=== PATIENT | male | born 2000 | race Caucasian/White ===

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

== ENCOUNTER 2018-09-01 03:52 | Emergency (ER) | payer SELFPAY ==
--- NOTE | 2018-09-01 04:07 | ER Document Report ---
ED General - General Chief Complaint: Psych Problem Stated Complaint: PSYCH PROBLEM Time Seen by Provider: 09/01/18 03:59 Notes: Patient is a 17-year-old male who presents to the emergency department after leaving his house in waking up 2 miles down from where he lives. he states he does not remember anything from the time that he stepped outside his house to smoke a cigarette until he woke up. He then proceeded to call 911, and was brought to the hospital. He denies any alcohol use tonight. He did smoke marijuana on Sunday night, 1 night ago. He does complain of neck pain and point tenderness upon palpation of his cervical spine. He also complains of pain to his right wrist, and has cuts to that area. There are additional cuts to his right ankle and lower leg, in which he states are from his dog. TRAVEL OUTSIDE OF THE [place] IN LAST 30 DAYS: No - Related Data Allergies/Adverse Reactions: No Known Allergies Allergy (Verified 08/27/17 22:13) Past Medical History - Social History Smoking Status: Current Every Day Smoker Frequency of alcohol use: Occasional Drug Abuse: Marijuana Family History: None Renal/ Medical History: Denies: Hx Peritoneal Dialysis Psychiatric Medical History: Reports: Hx Attention Deficit Hyperactivity Disorder - Immunizations Immunizations up to date: Yes Hx Diphtheria, Pertussis, Tetanus Vaccination: Yes Review of Systems - Review of Systems Notes: REVIEW OF SYSTEMS: CONSTITUTIONAL : Denies recent illness. Denies recent unintentional weight loss. Denies fever, chills, or sweats. EENT: Denies eye, ear, throat, or mouth pain, discharge, or symptoms. Denies nasal or sinus congestion. CARDIOVASCULAR: Denies chest pain. RESPIRATORY: Denies shortness of breath, cough, congestion, difficulty breathing , or wheezing. GASTROINTESTINAL: Denies nausea, vomiting, and diarrhea. Denies abdominal pain. Denies constipation. GENITOURINARY: Denies difficulty urinating, burning, blood in urine, urgency or frequency. MUSCULOSKELETAL: See HPI. denies joint pain or swelling. SKIN: Denies rash, itchiness, or lesions HEMATOLOGIC : Denies easy bruising or bleeding. LYMPHATIC: Denies swollen, painful, enlarged glands. NEUROLOGICAL: Denies no numbness or tingling denies weakness. Denies headache. Denies altered mental status. Denies alteration in speech. PSYCHIATRIC: Denies stress, anxiety, alteration in sleep patterns, or depression. All other systems reviewed and negative. Physical Exam - Vital signs Vitals: Temp Pulse Resp BP Pulse Ox 98.6 F 58 L 16 112/58 L 98 09/01/18 04:48 09/01/18 04:48 09/01/18 04:48 09/01/18 04:48 09/01/18 04:48 - Notes Notes: PHYSICAL EXAMINATION: GENERAL: Appears well, healthy, well-nourished, no acute distress. HEAD: Normocephalic, atraumatic. EYES: PERRL, conjunctiva normal, all extraocular movements intact, sclera nonicteric ENT: Moist mucous membranes. NECK: Point tenderness to cervical spine. Supple, no noticeable swelling, redness, rash. Normal range of motion. LUNGS: Equal breath sounds bilaterally and clear to auscultation. No wheezes rales or rhonchi. CARDIOVASCULAR: S1-S2, regular rate, regular rhythm. Radial pulses 2+, normal. ABDOMEN: Normoactive bowel sounds. Soft, nontender, no guarding, no rebound tenderness, and no masses palpated. EXTREMITIES: Normal strength and range of motion, no pitting or edema. No cyanosis. NEUROLOGICAL: Moves all extremities upon command. Strength 5/5 in all extremities. PSYCH: Normal mood, normal affect. SKIN: Scratches noted to right wrist/forearm, scratches noted to right ankle and right lower leg. Course - Re-evaluation Re-evalutation: 09/01/18 05:05 Laboratory studies are unremarkable at this time. CT of the head and neck, and x-ray of his wrist are negative. Awaiting urine drug screen. - Vital Signs Vital signs: Temp Pulse Resp BP Pulse Ox 98.6 F 58 L 16 112/58 L 98 09/01/18 04:48 09/01/18 04:48 09/01/18 04:48 09/01/18 04:48 09/01/18 04:48 - Laboratory Result Diagrams: 09/01/18 04:20 09/01/18 04:20 Laboratory results interpreted by me: 09/01/18 09/01/18 04:20 04:20 RBC 5.86 H Hgb 17.3 H Potassium 3.5 L Discharge - Discharge Clinical Impression: Altered mental status, unspecified Qualifiers: Altered mental status type: unspecified Qualified Code(s): R41.82 - Altered mental status, unspecified Condition: Stable Disposition: HOME, SELF-CARE Additional Instructions: You have been seen today in the emergency department for "blacking out." It is unclear as to why you have had this episode. Your labs and imaging are normal. It is concerning that you have had this now for the second time. Please follow-up with your neurologist you saw last time. If this happens again, develop a fever greater than 100.4 F or greater, develop shortness of breath, or if you have any concerns that are worrisome to you, please return to the emergency department.
[2018-09-01 04:31] LABS: ABSOLUTE BASOPHILS # (AUTO) 0.1 10^3/uL (0.0-0.2); ABSOLUTE EOSINOPHILS # (AUTO) 0.1 10^3/uL (0.0-0.6); ABSOLUTE LYMPHOCYTES (AUTO) 2.3 10^3/uL (0.5-4.7); ABSOLUTE MONOCYTES (AUTO) 0.5 10^3/uL (0.1-1.4); ABSOLUTE NEUT (AUTO) 5.6 10^3/uL (1.7-8.2); BASOPHILS % (AUTO) 0.7 % (0-2); EOSINOPHILS % (AUTO) 1.3 % (0-6); HEMATOCRIT 50.3 % (37.9-51.0); HEMOGLOBIN 17.3 g/dL (13.5-17.0); LYMPHOCYTES % (AUTO) 27.1 % (13-45); MEAN CORPUSCULAR HEMOGLOBIN 29.5 pg (27.0-33.4); MEAN CORPUSCULAR HGB CONC 34.3 g/dL (32.0-36.0); MEAN CORPUSCULAR VOLUME 86 fl (80-97); MONOCYTES % (AUTO) 5.5 % (3-13); PLATELET COUNT 255 10^3/uL (150-450); RED BLOOD COUNT 5.86 10^6/uL (4.35-5.55); RED CELL DISTRIBUTION WIDTH 13.3 % (11.5-14.0); SEGMENTED NEUTROPHILS % (AUTO) 65.4 % (42-78); TOTAL CELLS COUNTED % (AUTO) 100 %; WHITE BLOOD COUNT 8.5 10^3/uL (4.0-10.5)
[2018-09-01 04:53] VITALS: BP 112/58
[2018-09-01 04:55] LABS: ALCOHOL < 10 mg/dL (NONE DETECTED); ANION GAP 14 (5-19); BLOOD UREA NITROGEN 13 mg/dL (7-20); CARBON DIOXIDE 22 mmol/L (22-30); CHLORIDE 106 mmol/L (98-107); GLUCOSE 100 mg/dL (75-110); POTASSIUM 3.5 mmol/L (3.6-5.0); SODIUM 141.9 mmol/L (137-145)
--- NOTE | 2018-09-01 04:59 | RADIOLOGY REPORT (SQ) ---
CLINICAL HISTORY: ALOC COMPARISON: None. TECHNIQUE: CT CERVICAL SPINE WITHOUT IV CONTRAST on 09/01/2018 4:16 AM [employer]PRENTICE This exam was performed according to our departmental dose-optimization program, which includes automated exposure control, adjustment of the mA and/or kV according to patient size and/or use of iterative reconstruction technique. FINDINGS: There is no acute fracture. Alignment is anatomic. Disc spaces are maintained. Vertebral body heights are preserved. Soft tissues are unremarkable. IMPRESSION: No acute fracture or subluxation.
--- NOTE | 2018-09-01 04:59 | RADIOLOGY REPORT (SQ) ---
EXAM DESCRIPTION: CT HEAD WITHOUT IV CONTRAST COMPLETED DATE/TME: 09/01/2018 04:15 CLINICAL HISTORY: 17 years Male, ALOC COMPARISON: None. TECHNIQUE: No contrast. Coronal and sagittal reformat. This exam was performed according to our departmental dose-optimization program, which includes automated exposure control, adjustment of the mA and/or kV according to patient size and/or use of iterative reconstruction technique. FINDINGS: No hemorrhage or infarct. No mass, mass effect, or midline shift. Brain and extra-axial structures appear intact. IMPRESSION: Normal CT of the head.
--- NOTE | 2018-09-01 05:03 | RADIOLOGY REPORT (SQ) ---
CLINICAL HISTORY: injury COMPARISON: None. TECHNIQUE: XR WRIST 3 OR MORE VIEWS BILATERAL 09/01/2018 4:17 AM [employer] FINDINGS: There is no fracture. Joint spaces are preserved. Soft tissues are unremarkable. IMPRESSION: No acute osseous findings.
[2018-09-01 05:39] LABS: URINE AMPHETAMINES SCREEN NEGATIVE; URINE BARBITURATES SCREEN NEGATIVE; URINE BENZODIAZEPINES SCREEN NEGATIVE; URINE COCAINE SCREEN NEGATIVE; URINE MARIJUANA (THC) SCREEN UNCONFIRMED POSITIVE; URINE METHADONE SCREEN NEGATIVE; URINE PHENCYCLIDINE SCREEN NEGATIVE
== END 2018-09-01 06:18 | disposition home or self-care (01) ==
LOC: ER 03:52
DX: R41.82 Altered mental status, unspecified (principal); R41.3 Other amnesia; S60.811A Abrasion of right wrist, initial encounter; S90.511A Abrasion, right ankle, initial encounter; S80.811A Abrasion, right lower leg, initial encounter; S50.811A Abrasion of right forearm, initial encounter; X58.XXXA Exposure to other specified factors, initial encounter; M54.2 Cervicalgia; M25.531 Pain in right wrist; F17.210 Nicotine dependence, cigarettes, uncomplicated; F12.10 Cannabis abuse, uncomplicated
CPT/HCPCS: 36415; 70450; 72125; 80048; 80307; 85025; 99285

== ENCOUNTER 2018-12-07 10:59 | Emergency (ER) | payer OTHER ==
--- NOTE | 2018-12-07 11:54 | ER Document Report ---
ED Medical Screen (RME) - General Chief Complaint: Abdominal Pain Stated Complaint: ABDOMINAL PAIN Time Seen by Provider: 12/07/18 11:43 Mode of Arrival: Ambulatory Information source: Patient Notes: This is a 18-year-old man who presents with abdominal pain. Patient has been experiencing diffuse abdominal pain more so in the morning that seems to let up during the day. He states he does not normally eat that much in the morning but ends to eat more later in the day. He does report that he does have blood in his stool at times mixed in. There is of strong family history (father, older brother) of abdominal pain issues and blood in the stool. The patient is currently on no medicines. He does smoke a pack a day. He has had no surgeries. He had a diagnosis a number of years ago of IBS. TRAVEL OUTSIDE OF THE [place] IN LAST 30 DAYS: No - Related Data Allergies/Adverse Reactions: No Known Allergies Allergy (Verified 12/07/18 10:59) Past Medical History Neurological Medical History: Reports: Hx Seizures Renal/ Medical History: Denies: Hx Peritoneal Dialysis Psychiatric Medical History: Reports: Hx Attention Deficit Hyperactivity Disorder - Immunizations Immunizations up to date: Yes Hx Diphtheria, Pertussis, Tetanus Vaccination: Yes Physical Exam - Vital signs Vitals: Temp Pulse Resp BP Pulse Ox 99.0 F 56 L 14 104/49 L 97 12/07/18 11:18 12/07/18 11:18 12/07/18 11:18 12/07/18 11:18 12/07/18 11:18 Course - Vital Signs Vital signs: Temp Pulse Resp BP Pulse Ox 99.0 F 56 L 14 104/49 L 97 12/07/18 11:18 12/07/18 11:18 12/07/18 11:18 12/07/18 11:18 12/07/18 11:18
[2018-12-07 12:06] LABS: ABSOLUTE EOSINOPHILS # (AUTO) 0.1 10^3/uL (0.0-0.6); ABSOLUTE LYMPHOCYTES (AUTO) 1.5 10^3/uL (0.5-4.7); ABSOLUTE MONOCYTES (AUTO) 0.4 10^3/uL (0.1-1.4); ABSOLUTE NEUT (AUTO) 6.4 10^3/uL (1.7-8.2); BASOPHILS % (AUTO) 0.6 % (0-2); EOSINOPHILS % (AUTO) 0.6 % (0-6); HEMATOCRIT 49.9 % (37.9-51.0); HEMOGLOBIN 17.1 g/dL (13.5-17.0); LYMPHOCYTES % (AUTO) 17.6 % (13-45); MEAN CORPUSCULAR HEMOGLOBIN 29.5 pg (27.0-33.4); MEAN CORPUSCULAR HGB CONC 34.3 g/dL (32.0-36.0); MEAN CORPUSCULAR VOLUME 86 fl (80-97); MONOCYTES % (AUTO) 4.9 % (3-13); PLATELET COUNT 334 10^3/uL (150-450); RED BLOOD COUNT 5.81 10^6/uL (4.35-5.55); RED CELL DISTRIBUTION WIDTH 13.8 % (11.5-14.0); SEGMENTED NEUTROPHILS % (AUTO) 76.3 % (42-78); TOTAL CELLS COUNTED % (AUTO) 100 %; WHITE BLOOD COUNT 8.4 10^3/uL (4.0-10.5)
[2018-12-07 12:31] LABS: ALANINE AMINOTRANSFERASE 42 U/L (21-72); ALBUMIN 4.8 g/dL (3.5-5.0); ALKALINE PHOSPHATASE 64 U/L (38-126); ANION GAP 10 (5-19); ASPARTATE AMINO TRANSFERASE 27 U/L (17-59); BILIRUBIN,DIRECT 0.2 mg/dL (0.0-0.4); BILIRUBIN,TOTAL 0.5 mg/dL (0.2-1.3); BLOOD UREA NITROGEN 15 mg/dL (7-20); CALCIUM 10.5 mg/dL (8.4-10.2); CARBON DIOXIDE 29 mmol/L (22-30); CHLORIDE 104 mmol/L (98-107); GLUCOSE 94 mg/dL (75-110); POTASSIUM 4.9 mmol/L (3.6-5.0); SODIUM 142.6 mmol/L (137-145); TOTAL PROTEIN 7.7 g/dL (6.3-8.2)
[2018-12-07] MEDS ORDERED: HYDROCODONE/ACETAMINOPHEN 5-325 MG TABLET PO ONE (13:03)
--- NOTE | 2018-12-07 13:06 | ER Document Report ---
ED GI/ - General Chief Complaint: Abdominal Pain Stated Complaint: ABDOMINAL PAIN Time Seen by Provider: 12/07/18 11:43 Primary Care Provider: RENÉE STAHL DO [Primary Care Provider] - Follow up as needed Mode of Arrival: Ambulatory Notes: 18-year-old male with past medical history of irritable bowel syndrome who presents today with some intermittent lower abdominal "cramping" that is normally in the morning and resolves during the day. He states he has seen some bloody stools in the past, around 2 weeks ago. He denies any nausea, vomiting, fevers, dysuria, radiation of the pain, or aggravating or relieving factors. His brother and sibling have similar abdominal symptomatology. TRAVEL OUTSIDE OF THE [place] IN LAST 30 DAYS: No - HPI Similar symptoms previously: No Recently seen / treated by doctor: No - Related Data Allergies/Adverse Reactions: No Known Allergies Allergy (Verified 12/07/18 10:59) Past Medical History - General Information source: Patient - Social History Smoking Status: Current Every Day Smoker Drug Abuse: Marijuana Family History: None Patient has suicidal ideation: No Patient has homicidal ideation: No Neurological Medical History: Reports: Hx Seizures Renal/ Medical History: Denies: Hx Peritoneal Dialysis Psychiatric Medical History: Reports: Hx Attention Deficit Hyperactivity Disorder - Immunizations Immunizations up to date: Yes Hx Diphtheria, Pertussis, Tetanus Vaccination: Yes Review of Systems - Review of Systems Constitutional: denies: Fever EENT: denies: Eye discharge, Nose discharge Cardiovascular: denies: Chest pain Respiratory: denies: Short of breath Gastrointestinal: denies: Vomiting Genitourinary: denies: Dysuria Musculoskeletal: denies: Leg swelling Skin: denies: Rash Neurological/Psychological: Other - no slurred speech -: Yes All other systems reviewed and negative Physical Exam - Vital signs Vitals: Temp Pulse Resp BP Pulse Ox 99.0 F 56 L 14 104/49 L 97 12/07/18 11:18 12/07/18 11:18 12/07/18 11:18 12/07/18 11:18 12/07/18 11:18 Notes: Reviewed vital signs and nursing note as charted by RN. CONSTITUTIONAL: Alert and oriented and responds appropriately to questions. Well-appearing; well-nourished HEAD: Normocephalic; atraumatic EYES: Sclerae non-icteric ENT: Normal nose; no rhinorrhea; moist mucous membranes; pharynx without lesions noted NECK: Supple without meningismus; non-tender CARD: Regular rate and rhythm; no murmurs; symmetric distal pulses RESP: Normal chest excursion without splinting or tachypnea; breath sounds clear and equal bilaterally ABD/GI: Normal bowel sounds; non-distended; soft, non-tender currently to deep palpation of all 4 quadrants of the abdomen GI/: Patient has no penile lesions, testicular pain or swelling, or inguinal masses palpated. Rectal examination is negative for blood and is currently Hemoccult negative BACK: The back appears normal and is non-tender to palpation EXT: Normal ROM in all joints; non-tender to palpation; no edema SKIN: No acute lesions noted NEURO: CN 2-12 intact; 5/5 bilateral upper and lower extremity strength with sensation intact to light touch PSYCH: The patient's mood and manner are appropriate. Grooming and personal hygiene are appropriate. Course - Re-evaluation Re-evalutation: Given the above history and physical examination, we will obtain basic labs, li savita panel, and lipase. I do not believe any imaging is currently needed at this moment. Patient appears to have a history of irritable bowel syndrome and patient's Hemoccult stool is negative. Vital signs are stable and the patient has been afebrile. 12/07/18 13:05 Labs thus far as recorded. No change in exam. The patient's lipase is unremarkable, patient will be discharged home with nausea medications and expedited follow-up referral with gastroenterology. 12/07/18 13:42 Labs as recorded. Patient's pain is improved. Patient still has no tenderness to my deep palpation of all 4 quadrants of the abdomen. No vomiting here. I will provide a course of nausea medications, strict return precautions, and follow-up with the engine turner. - Vital Signs Vital signs: Temp Pulse Resp BP Pulse Ox 99.0 F 56 L 14 104/49 L 97 12/07/18 11:18 12/07/18 11:18 12/07/18 11:18 12/07/18 11:18 12/07/18 11:18 - Laboratory Result Diagrams: 12/07/18 11:50 12/07/18 11:50 Laboratory results interpreted by me: 12/07/18 12/07/18 11:50 11:50 RBC 5.81 H Hgb 17.1 H Calcium 10.5 H Discharge - Discharge Clinical Impression: Vomiting Qualifiers: Vomiting type: unspecified Vomiting Intractability: non-intractable Nausea presence: with nausea Qualified Code(s): R11.2 - Nausea with vomiting, unspecified Abdominal pain Qualifiers: Abdominal location: periumbilical Qualified Code(s): R10.33 - Periumbilical pain Condition: Good Disposition: HOME, SELF-CARE Additional Instructions: Come back immediately for any increased pain, change in location or quality of pain, fevers or vomiting, or any other acute problems. Please follow-up with the engine turner as we have discussed. Prescriptions: Ondansetron [Zofran Odt 4 mg Tablet] 1 tab PO Q6H #15 tab.rapdis Referrals: RENÉE STAHL DO [Primary Care Provider] - Follow up as needed NIKI SCOTT MD [ACTIVE STAFF] - Follow up as needed
[2018-12-07 13:18] LABS: LIPASE 56.1 U/L (23-300)
[2018-12-07 14:11] VITALS: BP 127/52
== END 2018-12-07 13:50 | disposition home or self-care (01) ==
LOC: ER 10:59
DX: R11.2 Nausea with vomiting, unspecified (principal); R10.33 Periumbilical pain; R10.30 Lower abdominal pain, unspecified; R10.9 Unspecified abdominal pain; R19.5 Other fecal abnormalities; F17.200 Nicotine dependence, unspecified, uncomplicated; F12.10 Cannabis abuse, uncomplicated
CPT/HCPCS: 36415; 80053; 83690; 85025; 99284

== ENCOUNTER 2019-06-12 12:41 | Emergency (ER) | payer OTHER ==
--- NOTE | 2019-06-12 13:05 | ER Document Report ---
ED Medical Screen (RME) - General Chief Complaint: Vomiting Stated Complaint: VOMITING Time Seen by Provider: 06/12/19 13:01 Primary Care Provider: RENÉE STAHL DO [Primary Care Provider] - Follow up as needed Mode of Arrival: Ambulatory Information source: Patient Notes: 18-year-old male presented to ED for complaint of vomiting. He states his had vomiting and diarrhea all day. He states that he started vomiting blood and is pure blood no clots no food just blood. He states he did have marijuana last night and is not sure what presented because since smoking marijuana he is felt like his insides were on fire. He is alert oriented respirations regular and unlabored speaking in full sentences. He does smoke a pack of cigarettes a day does not drink alcohol and lives with his dad. He states he does have a history of seizures IBS and a fractured right arm. He states he did have a colonoscopy 3 months ago. I have greeted and performed a rapid initial assessment of this patient. A comprehensive ED assessment and evaluation of the patient, analysis of test results and completion of medical decision making process will be conducted by a n additional ED providers. Dictation of this chart was performed using voice recognition software; therefore, there may be some unintended grammatical errors. TRAVEL OUTSIDE OF THE [place] IN LAST 30 DAYS: No - Related Data Allergies/Adverse Reactions: No Known Allergies Allergy (Verified 06/12/19 12:45) Past Medical History Neurological Medical History: Reports: Hx Seizures Renal/ Medical History: Denies: Hx Peritoneal Dialysis Psychiatric Medical History: Reports: Hx Attention Deficit Hyperactivity Disorder - Immunizations Immunizations up to date: Yes Hx Diphtheria, Pertussis, Tetanus Vaccination: Yes Physical Exam - Vital signs Vitals: Temp Pulse Resp BP Pulse Ox 97.4 F 78 18 139/78 H 100 06/12/19 12:47 06/12/19 12:47 06/12/19 12:47 06/12/19 12:47 06/12/19 12:47 Course - Vital Signs Vital signs: Temp Pulse Resp BP Pulse Ox 97.4 F 78 18 139/78 H 100 06/12/19 12:47 06/12/19 12:47 06/12/19 12:47 06/12/19 12:47 06/12/19 12:47 Doctor's Discharge - Discharge Referrals: RENÉE STAHL DO [Primary Care Provider] - Follow up as needed
[2019-06-12] MEDS ORDERED: ONDANSETRON HCL INJ/PF 4 MG/2 ML SDV IV ONE (13:06)
[2019-06-12] MEDS ORDERED: NORMAL SALINE 1000 ML 1,000 ML IV ONE (13:07)
[2019-06-12 13:27] LABS: ABSOLUTE LYMPHOCYTES (AUTO) 1.5 10^3/uL (0.5-4.7); ABSOLUTE MONOCYTES (AUTO) 0.6 10^3/uL (0.1-1.4); ABSOLUTE NEUT (AUTO) 12.2 10^3/uL (1.7-8.2); BASOPHILS % (AUTO) 0.2 % (0-2); EOSINOPHILS % (AUTO) 0.2 % (0-6); HEMOGLOBIN 19.6 g/dL (13.5-17.0); LYMPHOCYTES % (AUTO) 10.2 % (13-45); MEAN CORPUSCULAR HEMOGLOBIN 29.7 pg (27.0-33.4); MEAN CORPUSCULAR HGB CONC 33.7 g/dL (32.0-36.0); MEAN CORPUSCULAR VOLUME 88 fl (80-97); MONOCYTES % (AUTO) 4.1 % (3-13); PLATELET COUNT 281 10^3/uL (150-450); RED BLOOD COUNT 6.61 10^6/uL (4.35-5.55); RED CELL DISTRIBUTION WIDTH 13.8 % (11.5-14.0); SEGMENTED NEUTROPHILS % (AUTO) 85.3 % (42-78); TOTAL CELLS COUNTED % (AUTO) 100 %; WHITE BLOOD COUNT 14.3 10^3/uL (4.0-10.5)
[2019-06-12 13:28] LABS: HEMATOCRIT 58.3 % (37.9-51.0)
[2019-06-12 13:45] LABS: ALKALINE PHOSPHATASE 52 U/L (38-126); ANION GAP 10 (5-19); ASPARTATE AMINO TRANSFERASE 45 U/L (17-59); BILIRUBIN,DIRECT 0.2 mg/dL (0.0-0.4); BILIRUBIN,TOTAL 0.8 mg/dL (0.2-1.3); BLOOD UREA NITROGEN 11 mg/dL (7-20); CALCIUM 10.5 mg/dL (8.4-10.2); CARBON DIOXIDE 29 mmol/L (22-30); CHLORIDE 102 mmol/L (98-107); CREATINE KINASE 89 U/L (55-170); GLUCOSE 107 mg/dL (75-110); TOTAL PROTEIN 7.5 g/dL (6.3-8.2)
--- NOTE | 2019-06-12 15:11 | ER Document Report ---
HPI - HPI Patient complains to provider of: abdominal pain, hematemesis, diarrhea Time Seen by Provider: 06/12/19 13:01 Pain Level: 5 Context: 18 yr old male pt with the listed pmh, here for intermittent crampy diffuse abdominal pain for a few days and a few episodes of what he thinks was vomit with some bright red blood in it today so he came in. he had diarrhea without blood a few days ago but states that resolved and he hasn't had any today. no acute blood loss sx. hx of colonoscopy but no egd in the past that was neg and was diagnosed with what he thinks was IBS but never followed up. he was dc'd with protonix and bentyl then which he states he does take. unsure if he ate something bad. he does smoke cigarettes, drink occ etoh, and smoke marijuana but denies prior hx of cannabis hyperemesis or hematemesis before. no trauma or i njury. no hx of diabetes or asthma. normal bms. no uti sx. no testicular pain/swelling, penile dc/rash/lesions, or concerns for stds. denies swelling or hx of hernias. no abd surgeries unless otherwise noted. no recent abx or steroids. hasn't taken anything for sx. no hx of gerd, gb dz, pancreatitis, gi bleed, ulcers, diverticulitis, h pylori, or crohns. no hx of this before. no sick contacts. no uri sx. no rash. no excessive nsaid use or etoh. no recent illness. pain not worse with eating. denies changes in color or caliber of stool. no other associated sx. also of note, pt states he just donated plasma, and has been told in the past his h/h or iron was high before and hasn't f/u for this. he does have a pcp but can't remember her name. he denies testosterone usage or hx of other blood diseases. - ROS Systems Reviewed and Negative: Yes All other systems reviewed and negative - to include 10 systems, unless mentioned in the hpi - DERM Skin Color: Normal Past Medical History - General Information source: Patient - Social History Smoking Status: Current Every Day Smoker Chew tobacco use (# tins/day): No Frequency of alcohol use: Occasional Drug Abuse: Marijuana Family History: None Patient has suicidal ideation: No Patient has homicidal ideation: No Neurological Medical History: Reports: Hx Seizures - remotely as a child-no reoccurence-not on any meds. Endocrine Medical History: Reports: None Renal/ Medical History: Denies: Hx Peritoneal Dialysis Psychiatric Medical History: Reports: Hx Attention Deficit Hyperactivity Disorder Past Surgical History: Reports: Hx Orthopedic Surgery - Immunizations Immunizations up to date: Yes Hx Diphtheria, Pertussis, Tetanus Vaccination: Yes Vertical Provider Document - CONSTITUTIONAL Agree With Documented VS: Yes Exam Limitations: No Limitations General Appearance: No Apparent Distress Notes: >>>> PHYSICAL_EXAM: GENERAL_APPEARANCE: well_nourished, alert, cooperative, no_acute_distress, no obvious_discomfort. Pleasant, young male, laughing and joking around with girlfriend at bedside, smiling, speaking in full sentences, easily sitting up, in no sign of pain or resp distress, nontoxic VITALS: reviewed, see vital signs table. HEAD: normocephalic. atraumatic. no morgan signs. no raccoon eyes. EYES: PERRL, EOMI, (-)scleral icterus. NOSE: no_nasal_discharge. MOUTH: (-)decreased moisture. THROAT: no_tonsilar_inflammation/hypertrophy/exudate. no lymphadenopathy NECK: supple, no_neck_tenderness, full rom. full strength. no meningeal signs. BACK: no_back_tenderness. CHEST_WALL: no_chest_tenderness. LUNGS: no_wheezing, (-)accessory muscle use, good air exchange bilateral. HEART: normal_rate, normal_rhythm, ABDOMEN: normal_BS, soft, abdomen-diffuse non-tender, (-)guarding, (-)rebound, no distension or peritoneal signs. neg murphys. neg mcburneys. neg heel strike. neg obturator. neg psoas. neg rovsign. no cva tenderness GENITALS: deferred RECTAL: deferred EXTREMITIES: strength 5/5 in all_extremities, good pulses in all_extremities, no_edema, no_swelling\tenderness. full rom. normal gait. brisk cap refill. 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 SKIN: warm, dry, good_color, no _rash. no grossly visible overlying skin changes to suggest trauma unless otherwise noted. NEURO: motor_intact, sensory_intact. cranial nerves 2-12 intact, cerebellar fxn intact MENTAL_STATUS: normal_affect, speech_clear, oriented_X_3, responds_appropriat heber to questions. - INFECTION CONTROL TRAVEL OUTSIDE OF THE [place] IN LAST 30 DAYS: No Course - Re-evaluation Re-evalutation: pt here for intermittent diffuse abd pain, concern for possible blood in his vomit; however, he hasn't vomited here and doesn't have any pics of blood with vomit in it. he has had no diarrhea either. he is requesting food and drink and to be dc'd because he is hungry. he has no abd ttp on exam. he denies any abd pain currently. he just donated plasma and has a hx of an elevated h/h. labs unremarkable other than a slightly elevated h/h and mild leukocytosis. he rec eived fluids and nausea meds in triage and is refusing further workup and tx and requesting dc. again serial abd exams remain benign. he is tolerating po. advised if sx return he needs to return for further workup. he also needs to f/u with heme/onc/pcp/gi for his sx and elevated h/h to r/o other causes of his sx. advised bland diet. drink plenty of fluids. advised to f/u with pcp/hemeonc/gi in 1-2 days. return for any worsening symptoms. vss. well appearing. satting well on ra. neurononfocal. pt understands and agrees to plan. On reexam, pt improved with tx listed. remained stable. nontoxic. well appearing. pain controlled. tolerating po. requesting to go home. serial abd exams remain benign case discussed with ER Attending, Dr. riley, who directed and agrees with plan of care and advised no further workup indicated at this time and pt is stable for dc home with close f/u with pcp/specialist. Documentation achieved through voice recording which may lead to some occasional accidental typographical errors. Extensive efforts have been made to proof read documentation to make sure these are the least as possible. Category Date Time Status CBC WITH DIFF [HEME] Stat Lab 06/12/19 13:12 Completed COMPREHENSIVE METABOLIC PANEL [CHEM] Stat Lab 06/12/19 13:12 Completed CREATINE KINASE [CHEM] Stat Lab 06/12/19 13:12 Completed LIPASE [CHEM] Stat Lab 06/12/19 13:12 Completed TYPE AND SCREEN [BBK] Stat Lab 06/12/19 15:33 Completed URINALYSIS [URIN] Stat Lab 06/12/19 15:05 Completed URINE CULTURE [MC] Stat Lab 06/12/19 15:05 Completed URINE DRUG SCREEN [CHEM] Stat Lab 06/12/19 15:05 Completed Normal Saline 1000 ml [NaCl 0.9% 1000 ml IV Soln] 1,000 Med 06/12/19 13:07 Discontinued ml IV BOLUS Ondansetron HCl/Pf [Zofran Inj/Pf 4 mg/2 ml Sdv] Med 06/12/19 13:06 Discontinued 8 mg IV NOW ONE - Vital Signs Vital signs: Temp Pulse Resp BP Pulse Ox 97.4 F 78 18 139/78 H 100 06/12/19 12:47 06/12/19 12:47 06/12/19 12:47 06/12/19 12:47 06/12/19 12:47 - Laboratory Result Diagrams: 06/12/19 13:12 06/12/19 13:12 Laboratory results interpreted by me: 06/12/19 06/12/19 13:12 13:12 WBC 14.3 H RBC 6.61 H Hgb 19.6 H Hct 58.3 H Lymph % (Auto) 10.2 L Absolute Neuts (auto) 12.2 H Seg Neutrophils % 85.3 H Calcium 10.5 H Discharge - Discharge Clinical Impression: Elevated hemoglobin Abdominal pain Qualifiers: Abdominal location: unspecified location Qualified Code(s): R10.9 - Unspecified abdominal pain Hematemesis Qualifiers: Nausea presence: with nausea Qualified Code(s): K92.0 - Hematemesis Diarrhea Qualifiers: Diarrhea type: unspecified type Qualified Code(s): R19.7 - Diarrhea, unspecified Leukocytosis Qualifiers: Leukocytosis type: other Qualified Code(s): D72.828 - Other elevated white blood cell count Condition: Good Disposition: HOME, SELF-CARE Instructions: Abdominal Pain ([facility]) Additional Instructions: Follow-up with PCP/GI/hematology/oncology in 1 to 2 days. Return for any worsening symptoms. tylenol as needed for any pain or fever if not allergic. take the medication as prescribed. bland diet. drink plenty of fluids. Prescriptions: Ondansetron HCl [Zofran 4 mg Tablet] 1 tab PO Q8HP PRN #14 tablet PRN Reason: For Nausea/Vomiting Referrals: NIKI SCOTT MD [ACTIVE STAFF] - Follow up in 3-5 days ATUL NG MD [ACTIVE STAFF] - Follow up in 3-5 days RENÉE STAHL DO [Primary Care Provider] - Follow up in 3-5 days
[2019-06-12 15:25] LABS: APPEARANCE,URINE CLEAR; BILIRUBIN,URINE NEGATIVE (NEGATIVE); COLOR,URINE STRAW; GLUCOSE, URINE NEGATIVE (NEGATIVE); KETONES,URINE NEGATIVE (NEGATIVE); LEUKOCYTE ESTERASE,URINE NEGATIVE (NEGATIVE); NITRITE,URINE NEGATIVE (NEGATIVE); PROTEIN,URINE NEGATIVE (NEGATIVE); URINE SPECIFIC GRAVITY 1.004; UROBILINOGEN,URINE NEGATIVE mg/dL (<2.0)
[2019-06-12 15:40] LABS: URINE AMPHETAMINES SCREEN NEGATIVE; URINE BARBITURATES SCREEN NEGATIVE; URINE BENZODIAZEPINES SCREEN NEGATIVE; URINE COCAINE SCREEN NEGATIVE; URINE MARIJUANA (THC) SCREEN UNCONFIRMED POSITIVE; URINE METHADONE SCREEN NEGATIVE; URINE PHENCYCLIDINE SCREEN NEGATIVE
[2019-06-12 17:05] VITALS: BP 130/80
== END 2019-06-12 16:10 | disposition home or self-care (01) ==
LOC: ER 12:41
DX: K92.0 Hematemesis (principal); R19.7 Diarrhea, unspecified; R10.9 Unspecified abdominal pain; D72.828 Other elevated white blood cell count; D58.2 Other hemoglobinopathies; F17.200 Nicotine dependence, unspecified, uncomplicated
CPT/HCPCS: 99283; 96361; 96374; 86900; 86901; 36415; 87086; 86850; 82550; 83690; 85025; 80053; 81001; 80307; J2405; J7030

== ENCOUNTER 2020-05-17 21:28 | Emergency (ER) | payer OTHER | END 2020-05-17 22:53 | disposition left against medical advice (07) | LOC: ER 21:28 | DX: Z53.21 Procedure and treatment not carried out due to patient leaving prior to being seen by health care provider (principal) ==